=== PATIENT | male | born 1975 | race Caucasian/White ===

== ENCOUNTER 2021-09-30 19:32 | Emergency (ER) | payer MEDICAID ==
[~2021-09-30] VITALS: Ht 177.8 cm; Wt 81.6 kg
[2021-09-30 19:37] VITALS: BP_SYST 99
[2021-09-30 20:22] LABS: BASOPHILS # (AUTO) 0.1 K/uL (0.0-0.2); BASOPHILS % (AUTO) 0.7 % (0.0-2.0); EOSINOPHILS # (AUTO) 0.1 K/uL (0.0-0.4); EOSINOPHILS % (AUTO) 0.8 % (0.0-4.0); HEMATOCRIT 43.3 % (36-54); HEMOGLOBIN 14.2 g/dL (14.0-18.0); LYMPHOCYTES # (AUTO) 1.9 K/uL (1.0-5.5); LYMPHOCYTES % (AUTO) 21.4 % (20.5-51.5); MEAN CORPUSCULAR HEMOGLOBIN 29 pg (27-31); MEAN CORPUSCULAR HGB CONC 33 % (32-36); MEAN CORPUSCULAR VOLUME 87 fL (79.0-98.0); MONOCYTES # (AUTO) 0.5 K/uL (0.0-1.0); MONOCYTES % (AUTO) 5.1 % (1.7-9.3); NEUTROPHILS # (AUTO) 6.5 K/uL (1.8-7.7); PLATELET COUNT (AUTO) 377 K/uL (130-430); RED BLOOD CELL COUNT(AUTO) 4.96 MIL/uL (4.2-6.2); RED CELL DISTRIBUTION WIDTH 16.5 % (9.0-15.0); WHITE BLOOD COUNT (AUTO) 9.1 K/uL (4.8-10.8)
[2021-09-30 20:38] LABS: CALCIUM 7.8 mg/dL (8.4-11.0); CREATININE 1.32 mg/dL (0.55-1.30)
[2021-09-30 20:42] VITALS: BP_SYST 103
[2021-09-30 20:42] LABS: ALBUMIN 3.8 g/dL (3.4-4.8); TOTAL BILIRUBIN 0.2 mg/dL (0.0-1.0)
[2021-09-30 21:45] LABS: BARBITURATE, URINE NEGATIVE (NEG <=200); BENZODIAZEPINE, URINE POSITIVE (NEG <=150); CANNABINOID, URINE NEGATIVE (NEG <=50); COCAINE, URINE NEGATIVE (NEG <=150); METHAMPHETAMINES SCREEN,URINE NEGATIVE (NEG <=500); OPIATE, URINE NEGATIVE (NEG <=100); PHENCYCLIDINE SCREEN,URINE NEGATIVE (NEG <=25); UR TRICYCLIC ANTIDEPRESSANTS NEGATIVE (NEG <=300); URINE AMPHETAMINE NEGATIVE (NEG <=500); URINE METHADONE NEGATIVE (NEG <=200); URINE OXYCODONE SCREEN NEGATIVE (NEG <=100); URINE PROPOXYPHENE SCREEN NEGATIVE (NEG <=300)
== END 2021-09-30 21:20 | disposition left against medical advice (07) ==
LOC: SED 19:32
DX: F10.129 Alcohol abuse with intoxication, unspecified (principal); Y90.8 Blood alcohol level of 240 mg/100 ml or more
CPT/HCPCS: 36415; 71045; 80053; 80307; 82009; 82140; 82150; 83605; 83690; 85025; 99284; G0482

== ENCOUNTER 2021-09-30 22:43 | Emergency (ER) | payer MEDICAID ==
[~2021-09-30] VITALS: Ht 180.3 cm; Wt 95.3 kg
[2021-09-30 22:51] VITALS: BP_SYST 122
--- NOTE | 2021-09-30 22:55 | NUR ---
patient brought in [facility] department for medical clearance due to etoh intoxication. patient states he has no complaints. Patient recently eloped from this ED and has dried blood on arm. Denies any pain.
--- NOTE | 2021-09-30 22:55 | NUR ---
Patient to ER chair for evaluation.
--- NOTE | 2021-09-30 23:01 | NUR ---
Dried blood cleaned with normal saline and 4x4s. patient tolerated well.
--- NOTE | 2021-09-30 23:28 | NUR ---
ER Dr. MIRAMONTES at bedside examining patient.
[2021-09-30 23:34] VITALS: BP_SYST 122
--- NOTE | 2021-09-30 23:34 | NUR ---
Patient AND DEPUTY given written and verbal discharge instructions and verbalizes understanding. ER MD discussed with patient the results and treatment provided. Patient in stable condition. ID arm band removed. Patient educated on pain management and to follow up with PMD. Pain Scale 0/10 Opportunity for questions provided and answered.
== END 2021-09-30 23:34 ==
LOC: SED 22:43
CPT/HCPCS: 99283

== ENCOUNTER → 2021-10-02 | Emergency (ER) | payer MEDICAID ==
[~2021-10-02] VITALS: Ht 172.7 cm; Wt 95.3 kg
[~2021-10-02] MED LIST: AMMONIA INHALANT 0.3mL AMPUL INH ONE; DIPHENHYDRAMINE INJ 50 MG/ML VIAL IVP ONE; DIPHENHYDRAMINE INJ 50 MG/ML VIAL ONE; FOLIC ACID 1 MG, THIAMINE HCL 100 MG, MAGNESIUM SULFATE 1 GM, MVI 10 ML in NACL 0.9% 1,... IV ONE; FOLIC ACID 5 MG/ML VIAL IV ONE; HALOPERIDOL LACTATE 5 MG/ML VIAL IM ONE; LORazepam 2 MG/ML VIAL IVP ONE; LORazepam 2 MG/ML VIAL ONE; MAGNESIUM SULFATE 1 GM/2 ML VIAL ONE; MVI 10 ML VIAL IV ONE; NACL 0.9% 1,000 ML IV ONE; NACL 0.9% 2,000 ML IV ONE; NALOXONE HCL 2 MG/2 ML SYR IVP ONE; THIAMINE HCL 100 MG/ML VIAL ONE
[2021-10-02 22:46] VITALS: BP_SYST 131
--- NOTE | 2021-10-02 23:02 | NUR ---
Placed in room 02 . Placed on machinist general, blood pressure machine and pulse oximeter. To gown for exam. Side rails up. Report given to BONG REDDING
--- NOTE | 2021-10-02 23:40 | NUR ---
# 18 gauge angiocath placed to LATERAL FOREARM. Use of asceptic technique. Opsite placed over site. Blood return noted. Blood for lab drawn from site. Flushed with 10 cc of normal saline. No evidence of infiltration noted. Patient tolerated well.
--- NOTE | 2021-10-02 23:58 | NUR ---
# 16 FR In and Out catheter with use of sterile technique. Immediate return of 200ml clear urine noted. Urine sample collected and sent to lab. Pt tolerated procedure well Patient unable to toilet self.
[2021-10-03 00:08] LABS: BASOPHILS # (AUTO) 0.1 K/uL (0.0-0.2); EOSINOPHILS # (AUTO) 0.2 K/uL (0.0-0.4); EOSINOPHILS % (AUTO) 2.2 % (0.0-4.0); HEMATOCRIT 46.5 % (36-54); HEMOGLOBIN 15.2 g/dL (14.0-18.0); LYMPHOCYTES # (AUTO) 2.4 K/uL (1.0-5.5); LYMPHOCYTES % (AUTO) 34.1 % (20.5-51.5); MEAN CORPUSCULAR HEMOGLOBIN 29 pg (27-31); MEAN CORPUSCULAR HGB CONC 33 % (32-36); MEAN CORPUSCULAR VOLUME 87 fL (79.0-98.0); MONOCYTES # (AUTO) 0.4 K/uL (0.0-1.0); NEUTROPHILS % (AUTO) 55.7 % (40.0-70.0); PLATELET COUNT (AUTO) 357 K/uL (130-430); RED BLOOD CELL COUNT(AUTO) 5.32 MIL/uL (4.2-6.2); RED CELL DISTRIBUTION WIDTH 16.6 % (9.0-15.0); WHITE BLOOD COUNT (AUTO) 7.2 K/uL (4.8-10.8)
[2021-10-03 00:33] LABS: ALANINE AMINOTRANSFERASE 33 U/L (12-78); ALBUMIN 3.7 g/dL (3.4-4.8); ASPARTATE AMINOTRANSFERASE 50 U/L (10-37); CALCIUM 8.3 mg/dL (8.4-11.0); CREATININE 1.02 mg/dL (0.55-1.30); GLUCOSE 108 mg/dL (70-99); TOTAL BILIRUBIN 0.1 mg/dL (0.0-1.0); UREA NITROGEN, BLOOD 8 mg/dL (8-21)
[2021-10-03 00:38] LABS: GFR AFRICAN AMERICAN 102 mL/min (>90)
[2021-10-03 00:39] LABS: ACETAMINOPHEN < 1 ug/mL (1-30); ALCOHOL, BLOOD 518 mg/dL (<10)
--- NOTE | 2021-10-03 00:42 | NUR ---
Pt attempting to get out of bed x3. Pt pulling at lines (IV) and monitoring equipment. Pt unable to be redirected at this time. ER techs remain close by to monitor for safety. ER provider made aware. Received help from peer nurses and techs to maintain safety.
[2021-10-03 00:44] LABS: ANION GAP 14 (5-15); CHLORIDE 106 mmol/L (98-107); POTASSIUM 3.5 mmol/L (3.5-5.1); SODIUM SERUM 144 mmol/L (136-145)
[2021-10-03 00:46] LABS: BILIRUBIN,URINE NEGATIVE (NEGATIVE); BLOOD, URINE NEGATIVE (NEGATIVE); CLARITY/URINE CLEAR (CLEAR); COLOR,URINE YELLOW (YELLOW); GLUCOSE,URINE NEGATIVE (NEGATIVE); KETONES,URINE NEGATIVE (NEGATIVE); LEUKOCYTE ESTERASE ,URINE NEGATIVE (NEGATIVE); NITRITE, URINE NEGATIVE (NEGATIVE); PH,URINE 5.5 (5.0-8.0); PROTEIN URINE NEGATIVE (NEGATIVE); UROBILINOGEN,URINE 0.2 (0.2-1.0)
[2021-10-03 01:01] LABS: BARBITURATE, URINE NEGATIVE (NEG <=200); BENZODIAZEPINE, URINE NEGATIVE (NEG <=150); CANNABINOID, URINE NEGATIVE (NEG <=50); COCAINE, URINE NEGATIVE (NEG <=150); METHAMPHETAMINES SCREEN,URINE NEGATIVE (NEG <=500); OPIATE, URINE NEGATIVE (NEG <=100); PHENCYCLIDINE SCREEN,URINE NEGATIVE (NEG <=25); UR TRICYCLIC ANTIDEPRESSANTS NEGATIVE (NEG <=300); URINE AMPHETAMINE NEGATIVE (NEG <=500); URINE METHADONE NEGATIVE (NEG <=200); URINE OXYCODONE SCREEN NEGATIVE (NEG <=100); URINE PROPOXYPHENE SCREEN NEGATIVE (NEG <=300)
[2021-10-03 08:59] VITALS: BP_SYST 128
--- NOTE | 2021-10-03 09:00 | NUR ---
Patient given written and verbal discharge instructions and verbalizes understanding. ER MD discussed with patient the results and treatment provided. Patient in stable condition. ID arm band removed. IV catheter removed intact and dressing applied, no active bleeding. No rx given. Patient educated on condition.Opportunity for questions provided and answered. Medication side effect fact sheet provided.
== END | disposition home or self-care (01) ==
LOC: SED 22:46
DX: R41.82 Altered mental status, unspecified (principal); F10.129 Alcohol abuse with intoxication, unspecified
CPT/HCPCS: 36415; 70450; 76376; 80053; 80307; 81003; 84484; 85025; 93005; 96361; 96365; 96366; 96372; 96375; 96376; 99285; G0480; G0481; G0482; J2310; 71045; J1200; J2060; J3411; J3475; J3490

== ENCOUNTER 2021-10-15 13:36 | Emergency (ER) | payer MEDICAID ==
[~2021-10-15] VITALS: Ht 180.3 cm; Wt 99.8 kg
[2021-10-15 13:36] VITALS: BP_SYST 137
--- NOTE | 2021-10-15 13:36 | NUR ---
BROUGHT IN BY [facility] AND IN HALLWAY UNTIL BED AVAILABLE. [facility] EMT'S WITH PT. PT IS EXTREMELY INTOXICATED.
--- NOTE | 2021-10-15 14:01 | NUR ---
PT STATES THAT HE HAS NOWHERE TO LIVE AND HAS NO FRIENDS/FAMILY. PT IS HEAVILY INTOXICATED. I ASKED PT HOW MUCH HE DRANK, HE RESPONDED WITH "A LOT". PT COOPERATIVE WITH STAFF AT THIS TIME. PT FOUND BY [employer] INTOXICATED ASLEEP IN STRIP MALL LAYING ON CEMENT.
--- NOTE | 2021-10-15 14:23 | NUR ---
DR AHUJA AT BEDSIDE FOR EVALUATION
--- NOTE | 2021-10-15 14:45 | NUR ---
LABS BEING DRAWN AT THIS TIME AT BEDSIDE.
--- NOTE | 2021-10-15 14:58 | NUR ---
PT BEING VERY DEMANDING WITH STAFF TO GO TO RESTROOM, URINAL GIVEN TO PT, PT CURSING LOUDLY. PT IS NOT STEADY ON FEET.
--- NOTE | 2021-10-15 15:40 | NUR ---
PT RESTING QUIETLY. NO CHANGES
--- NOTE | 2021-10-15 16:00 | NUR ---
PT STATED TO OTHER STAFF THAT HE WAS GOING BREAK DOWN THE BACK SLIDING DOOR. WISHED TO LEAVE. PT ELOPED OUT SLIDING DOOR WITH STEADY GATE.
--- NOTE | 2021-10-15 16:10 | NUR ---
PT ELOPED OUT BACK DOOR. PT WITH STEADY GAIT AND PT WAS ALERT AND ORIENTED. DR AHUJA AWARE.
[2021-10-15 16:27] LABS: BASOPHILS % (AUTO) 0.7 % (0.0-2.0); EOSINOPHILS % (AUTO) 0.2 % (0.0-4.0); HEMATOCRIT 43.3 % (36-54); HEMOGLOBIN 14.2 g/dL (14.0-18.0); LYMPHOCYTES # (AUTO) 1.8 K/uL (1.0-5.5); LYMPHOCYTES % (AUTO) 26.6 % (20.5-51.5); MEAN CORPUSCULAR HEMOGLOBIN 29 pg (27-31); MEAN CORPUSCULAR HGB CONC 33 % (32-36); MEAN CORPUSCULAR VOLUME 88 fL (79.0-98.0); MONOCYTES # (AUTO) 0.6 K/uL (0.0-1.0); MONOCYTES % (AUTO) 9.7 % (1.7-9.3); NEUTROPHILS # (AUTO) 4.1 K/uL (1.8-7.7); NEUTROPHILS % (AUTO) 62.8 % (40.0-70.0); PLATELET COUNT (AUTO) 227 K/uL (130-430); RED BLOOD CELL COUNT(AUTO) 4.91 MIL/uL (4.2-6.2); RED CELL DISTRIBUTION WIDTH 16.3 % (9.0-15.0); WHITE BLOOD COUNT (AUTO) 6.6 K/uL (4.8-10.8)
[2021-10-15 16:28] LABS: ALBUMIN 3.6 g/dL (3.4-4.8); AMYLASE 59 U/L (0-100); ANION GAP 12 (5-15); ASPARTATE AMINOTRANSFERASE 43 U/L (10-37); CHLORIDE 101 mmol/L (98-107); CREATININE 1.02 mg/dL (0.55-1.30); LIPASE 120 U/L (73-393); POTASSIUM 3.5 mmol/L (3.5-5.1); SODIUM SERUM 138 mmol/L (136-145); TOTAL BILIRUBIN 0.1 mg/dL (0.0-1.0); UREA NITROGEN, BLOOD 11 mg/dL (8-21)
[2021-10-15 16:45] LABS: ALANINE AMINOTRANSFERASE 46 U/L (12-78); CALCIUM 8.3 mg/dL (8.4-11.0); GLUCOSE 119 mg/dL (70-99)
[2021-10-15 16:47] LABS: GFR AFRICAN AMERICAN 102 mL/min (>90)
[2021-10-15 16:48] LABS: ACETAMINOPHEN < 1 ug/mL (1-30)
[2021-10-15 17:08] LABS: ALCOHOL, BLOOD 316 mg/dL (<10)
--- NOTE | 2021-10-15 18:00 | NUR ---
CALLED [facility] LARSON TO REPORT PATIENT ELOPEMENT. PROVIDED IDENTIFICATION, AND NAME. DEPUTIES DISPATCHED.
== END 2021-10-15 16:10 | disposition left against medical advice (07) ==
LOC: SED 13:36
DX: F10.129 Alcohol abuse with intoxication, unspecified (principal); R45.851 Suicidal ideations; Y90.8 Blood alcohol level of 240 mg/100 ml or more
CPT/HCPCS: 36415; 80053; 82140; 82150; 82550; 83605; 83690; 85025; 99283; G0480; G0481; G0482

== ENCOUNTER 2023-03-30 08:35 | Emergency (ER) | payer MEDICAID ==
[~2023-03-30] VITALS: Ht 170.2 cm; Wt 81.6 kg
[~2023-03-30 08:35] MED LIST changes: -AMMONIA INHALANT 0.3mL AMPUL INH ONE; -DIPHENHYDRAMINE INJ 50 MG/ML VIAL IVP ONE; -DIPHENHYDRAMINE INJ 50 MG/ML VIAL ONE; -FOLIC ACID 1 MG, THIAMINE HCL 100 MG, MAGNESIUM SULFATE 1 GM, MVI 10 ML in NACL 0.9% 1,... IV ONE; -FOLIC ACID 5 MG/ML VIAL IV ONE; -HALOPERIDOL LACTATE 5 MG/ML VIAL IM ONE; +LIB25 PO; -LORazepam 2 MG/ML VIAL IVP ONE; -LORazepam 2 MG/ML VIAL ONE; -MAGNESIUM SULFATE 1 GM/2 ML VIAL ONE; -MVI 10 ML VIAL IV ONE; -NACL 0.9% 1,000 ML IV ONE; -NACL 0.9% 2,000 ML IV ONE; -NALOXONE HCL 2 MG/2 ML SYR IVP ONE; -THIAMINE HCL 100 MG/ML VIAL ONE
[2023-03-30 08:42] VITALS: BP_SYST 102; PULSE 98; RESP 16; TEMP 98.5; O2SAT 95
[2023-03-30] MEDS ORDERED: NACL 0.9% 1,000 ML IV ONE ×2 (08:45→14:15)
[2023-03-30] MEDS ORDERED: THIAMINE HCL 100 MG/ML VIAL IM ONE (08:45)
[2023-03-30 09:06] LABS: BASOPHILS % (AUTO) 0.4 % (0.0-2.0); HEMATOCRIT 41.6 % (36-54); LYMPHOCYTES # (AUTO) 2.5 K/uL (1.0-5.5); MEAN CORPUSCULAR HEMOGLOBIN 30 pg (27-31); MEAN CORPUSCULAR HGB CONC 34 % (32-36); MEAN CORPUSCULAR VOLUME 88 fL (79.0-98.0); MONOCYTES % (AUTO) 9.6 % (1.7-9.3); NEUTROPHILS # (AUTO) 6.9 K/uL (1.8-7.7); PLATELET COUNT (AUTO) 310 K/uL (130-430); RED BLOOD CELL COUNT(AUTO) 4.73 MIL/uL (4.2-6.2); RED CELL DISTRIBUTION WIDTH 13.6 % (9.0-15.0); WHITE BLOOD COUNT (AUTO) 10.4 K/uL (4.8-10.8)
[2023-03-30 09:10] LABS: CALCIUM 7.1 mg/dL (8.4-11.0); CREATININE 1.05 mg/dL (0.55-1.30); POTASSIUM 3.4 mmol/L (3.5-5.1)
[2023-03-30 09:21] LABS: ALBUMIN 3.7 g/dL (3.4-4.8); TOTAL BILIRUBIN 0.2 mg/dL (0.0-1.0); TOTAL PROTEIN, SERUM 7.8 g/dL (6.4-8.3)
[2023-03-30 09:53] LABS: BARBITURATE, URINE NEGATIVE (NEG <=200); BENZODIAZEPINE, URINE NEGATIVE (NEG <=150); CANNABINOID, URINE NEGATIVE (NEG <=50); COCAINE, URINE NEGATIVE (NEG <=150); METHAMPHETAMINES SCREEN,URINE NEGATIVE (NEG <=500); OPIATE, URINE NEGATIVE (NEG <=100); PHENCYCLIDINE SCREEN,URINE NEGATIVE (NEG <=25); URINE AMPHETAMINE NEGATIVE (NEG <=500); URINE METHADONE NEGATIVE (NEG <=200); URINE OXYCODONE SCREEN NEGATIVE (NEG <=100); URINE PROPOXYPHENE SCREEN NEGATIVE (NEG <=300)
[2023-03-30 09:56] LABS: UR TRICYCLIC ANTIDEPRESSANTS NEGATIVE (NEG <=300)
[2023-03-30] MEDS ORDERED: LORazepam 2 MG/ML VIAL IVP ONE (12:30)
[2023-03-30 17:45] VITALS: BP_SYST 148; PULSE 92; RESP 18; TEMP 98.7; O2SAT 98
== END 2023-03-30 16:30 | disposition home or self-care (01) ==
LOC: SED 08:35
DX: F10.129 Alcohol abuse with intoxication, unspecified (principal); Z79.899 Other long term (current) drug therapy; Y90.6 Blood alcohol level of 120-199 mg/100 ml
CPT/HCPCS: 99285; 96374; 70450; 96361; 80307; 80053; 82140; 85025; 84484; 36415; 93005; 76376; 96372; J2060; J3411; J7030; G0482

== ENCOUNTER 2023-08-14 23:33 | Emergency (ER) | payer MEDICAID ==
[~2023-08-14] VITALS: Ht 177.8 cm; Wt 108.9 kg
[2023-08-14 23:40] VITALS: BP_SYST 129; PULSE 103; RESP 16; TEMP 96.9; O2SAT 97
[2023-08-15] MEDS: LORazepam 1 MG TABLET PO ONE (00:28)
[2023-08-15 00:33] LABS: BASOPHILS % (AUTO) 0.5 % (0.0-2.0); EOSINOPHILS # (AUTO) 0.1 K/uL (0.0-0.4); EOSINOPHILS % (AUTO) 1.1 % (0.0-4.0); HEMATOCRIT 41.9 % (36-54); HEMOGLOBIN 14.2 g/dL (14.0-18.0); LYMPHOCYTES # (AUTO) 2.2 K/uL (1.0-5.5); LYMPHOCYTES % (AUTO) 27.4 % (20.5-51.5); MEAN CORPUSCULAR HEMOGLOBIN 29 pg (27-31); MEAN CORPUSCULAR HGB CONC 34 % (32-36); MEAN CORPUSCULAR VOLUME 86 fL (79.0-98.0); MONOCYTES # (AUTO) 0.9 K/uL (0.0-1.0); MONOCYTES % (AUTO) 10.6 % (1.7-9.3); NEUTROPHILS # (AUTO) 4.9 K/uL (1.8-7.7); NEUTROPHILS % (AUTO) 60.4 % (40.0-70.0); PLATELET COUNT (AUTO) 291 K/uL (130-430); RED BLOOD CELL COUNT(AUTO) 4.89 MIL/uL (4.2-6.2); RED CELL DISTRIBUTION WIDTH 15.2 % (9.0-15.0); WHITE BLOOD COUNT (AUTO) 8.2 K/uL (4.8-10.8)
[2023-08-15 00:36] LABS: BILIRUBIN,URINE NEGATIVE (NEGATIVE); BLOOD, URINE NEGATIVE (NEGATIVE); CLARITY/URINE CLEAR (CLEAR); COLOR,URINE YELLOW (YELLOW); GLUCOSE,URINE NEGATIVE (NEGATIVE); KETONES,URINE NEGATIVE (NEGATIVE); LEUKOCYTE ESTERASE ,URINE NEGATIVE (NEGATIVE); NITRITE, URINE NEGATIVE (NEGATIVE); PROTEIN URINE NEGATIVE (NEGATIVE)
[2023-08-15 01:03] LABS: ALANINE AMINOTRANSFERASE 36 U/L (12-78); ALBUMIN 3.7 g/dL (3.4-4.8); ALCOHOL, BLOOD < 3 mg/dL (<10); ANION GAP 10 (5-15); ASPARTATE AMINOTRANSFERASE 27 U/L (10-37); BILIRUBIN,DIRECT 0.1 mg/dL (0.0-0.3); CALCIUM 8.6 mg/dL (8.4-11.0); CARBON DIOXIDE 24 mmol/L (23-29); CHLORIDE 106 mmol/L (98-107); CREATININE 1.14 mg/dL (0.55-1.30); GFR AFRICAN AMERICAN 89 mL/min (>90); GFR NON AFRICAN-AMERICAN 74 mL/min (>90); GLUCOSE 102 mg/dL (74-106); LIPASE 25 U/L (16-77); POTASSIUM 4.1 mmol/L (3.5-5.1); SODIUM SERUM 140 mmol/L (136-145); TOTAL BILIRUBIN 0.3 mg/dL (0.0-1.0); TOTAL PROTEIN, SERUM 8.3 g/dL (6.4-8.3); UREA NITROGEN, BLOOD 16 mg/dL (8-21)
[2023-08-15 01:04] LABS: BENZODIAZEPINE, URINE POSITIVE (NEG <=150); OPIATE, URINE POSITIVE (NEG <=100)
[2023-08-15 01:05] LABS: BARBITURATE, URINE NEGATIVE (NEG <=200); CANNABINOID, URINE NEGATIVE (NEG <=50); COCAINE, URINE NEGATIVE (NEG <=150); METHAMPHETAMINES SCREEN,URINE NEGATIVE (NEG <=500); PHENCYCLIDINE SCREEN,URINE NEGATIVE (NEG <=25); UR TRICYCLIC ANTIDEPRESSANTS NEGATIVE (NEG <=300); URINE AMPHETAMINE NEGATIVE (NEG <=500); URINE METHADONE NEGATIVE (NEG <=200); URINE OXYCODONE SCREEN NEGATIVE (NEG <=100)
[2023-08-15] MEDS ORDERED: LORA-258 PO (01:55)
[2023-08-15 02:02] VITALS: BP_SYST 128; PULSE 95; RESP 16; TEMP 96.9; O2SAT 98
== END 2023-08-15 02:02 | disposition home or self-care (01) ==
LOC: SED 23:33
DX: F10.10 Alcohol abuse, uncomplicated (principal); F11.10 Opioid abuse, uncomplicated; I10 Essential (primary) hypertension; Z79.899 Other long term (current) drug therapy; Y90.0 Blood alcohol level of less than 20 mg/100 ml
CPT/HCPCS: 99283; 80307; 80076; 80048; 83690; 85025; 36415; 81003; 81001; G0482

== ENCOUNTER 2023-11-23 13:04 | Emergency (ER) | payer MEDICAID ==
[~2023-11-23] VITALS: Ht 172.7 cm; Wt 120.2 kg
[~2023-11-23 13:04] MED LIST changes: +CHLO25CA11 PO; -LIB25 PO
[2023-11-23 13:07] VITALS: BP_SYST 138; PULSE 88; RESP 20; TEMP 98.3; O2SAT 98
[2023-11-23 13:38] LABS: BASOPHILS % (AUTO) 0.5 % (0.0-2.0); EOSINOPHILS # (AUTO) 0.2 K/uL (0.0-0.4); EOSINOPHILS % (AUTO) 1.7 % (0.0-4.0); HEMATOCRIT 41.3 % (36-54); HEMOGLOBIN 14.1 g/dL (14.0-18.0); LYMPHOCYTES # (AUTO) 2.1 K/uL (1.0-5.5); LYMPHOCYTES % (AUTO) 21.3 % (20.5-51.5); MEAN CORPUSCULAR HEMOGLOBIN 30 pg (27-31); MEAN CORPUSCULAR HGB CONC 34 % (32-36); MEAN CORPUSCULAR VOLUME 88 fL (79.0-98.0); MONOCYTES % (AUTO) 9.9 % (1.7-9.3); NEUTROPHILS # (AUTO) 6.5 K/uL (1.8-7.7); NEUTROPHILS % (AUTO) 66.6 % (40.0-70.0); PLATELET COUNT (AUTO) 268 K/uL (130-430); RED BLOOD CELL COUNT(AUTO) 4.69 MIL/uL (4.2-6.2); RED CELL DISTRIBUTION WIDTH 15.9 % (9.0-15.0); WHITE BLOOD COUNT (AUTO) 9.7 K/uL (4.8-10.8)
[2023-11-23 14:08] LABS: ALBUMIN 3.5 g/dL (3.4-4.8); BILIRUBIN,DIRECT 0.1 mg/dL (0.0-0.3); CALCIUM 8.4 mg/dL (8.4-11.0); CREATININE 1.02 mg/dL (0.55-1.30); POTASSIUM 3.7 mmol/L (3.5-5.1); TOTAL BILIRUBIN 0.2 mg/dL (0.0-1.0); TOTAL PROTEIN, SERUM 7.7 g/dL (6.4-8.3)
[2023-11-23 14:13] LABS: BARBITURATE, URINE NEGATIVE (NEG <=200); BENZODIAZEPINE, URINE POSITIVE (NEG <=150); CANNABINOID, URINE NEGATIVE (NEG <=50); COCAINE, URINE NEGATIVE (NEG <=150); METHAMPHETAMINES SCREEN,URINE NEGATIVE (NEG <=500); OPIATE, URINE NEGATIVE (NEG <=100); PHENCYCLIDINE SCREEN,URINE NEGATIVE (NEG <=25); UR TRICYCLIC ANTIDEPRESSANTS NEGATIVE (NEG <=300); URINE AMPHETAMINE NEGATIVE (NEG <=500); URINE METHADONE NEGATIVE (NEG <=200); URINE OXYCODONE SCREEN NEGATIVE (NEG <=100)
== END 2023-11-23 18:10 | disposition left against medical advice (07) ==
LOC: SED 13:04
DX: F10.129 Alcohol abuse with intoxication, unspecified (principal); R10.9 Unspecified abdominal pain; I10 Essential (primary) hypertension; F32.A Depression, unspecified; Z79.899 Other long term (current) drug therapy; Y90.7 Blood alcohol level of 200-239 mg/100 ml
CPT/HCPCS: 99283; 80307; 80076; 80048; 82140; 85025; 36415; G0482